=== PATIENT | male | born 1940 | race Asian ===

== ENCOUNTER 2021-03-24 09:42 | Day surgery (SDC) | payer OTHER, SELFPAY ==
[~2021-03-24] VITALS: Ht 170.2 cm; Wt 72.6 kg
[2021-03-24] MEDS ORDERED: diphenhydrAMINE 50 MG/ML VIAL ONE (10:37)
[2021-03-24] MEDS ORDERED: LIDOCAINE 2% 100 MG/5 ML UJET TP ONE ×2 (10:37→11:00)
[2021-03-24] MEDS ORDERED: MIDAZOLAM 5 MG/5 ML VIAL ONE (10:37)
[2021-03-24] MEDS ORDERED: fentaNYL citrate 0.05 MG/ML VIAL ONE (10:37)
[2021-03-24] MEDS ORDERED: fentaNYL citrate 0.05 MG/ML VIAL IVP ONE (11:00)
[2021-03-24] MEDS ORDERED: MIDAZOLAM 2 MG/2 ML VIAL IVP ONE (11:05)
== END 2021-03-24 11:53 | disposition home or self-care (01) ==
LOC: MDS 09:42 → MMU 09:43 → MDS 11:53
PROVIDERS: ATTEND Internal Medicine Gastroenterology
DX: K59.00 Constipation, unspecified (principal); Z80.0 Family history of malignant neoplasm of digestive organs; Z79.899 Other long term (current) drug therapy; Z20.822 Contact with and (suspected) exposure to COVID-19
CPT/HCPCS: 45378; 87426; J2250; J3010; J1200